=== PATIENT | male | born 1950 | race Hispanic/Latino ===

== ENCOUNTER 2021-12-05 19:10 | Emergency (ER) | payer OTHER | END 2021-12-05 21:55 | LOC: NAV ERS 19:10 | DX: M54.50 Low back pain, unspecified (principal); C79.51 Secondary malignant neoplasm of bone; M51.35 Other intervertebral disc degeneration, thoracolumbar region; W18.11XA Fall from or off toilet without subsequent striking against object, initial encounter; Z86.16 Personal history of COVID-19; Z85.46 Personal history of malignant neoplasm of prostate; Z79.899 Other long term (current) drug therapy | CPT/HCPCS: 72125; 72128; 72131 ==